=== PATIENT | female | born 2000 | race Caucasian/White ===

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

== ENCOUNTER 2024-02-12 18:39 | Emergency (ER) | payer BC, MEDICAID ==
[~2024-02-12] VITALS: Ht 154.9 cm; Wt 36.3 kg
[2024-02-12 18:42] VITALS: TEMP 100.3
[2024-02-12 19:23] LABS: BASOPHILS % (AUTO) 0.1 % (0.0-2.0); HEMATOCRIT 42 % (33-45); LYMPHOCYTES # (AUTO) 0.6 K/uL (0.8-4.8); LYMPHOCYTES % (AUTO) 6.1 % (20.0-44.0); MEAN CORPUSCULAR HEMOGLOBIN 30 PG (26.0-33.0); MEAN CORPUSCULAR HGB CONC 33 g/dl (31.0-36.0); MEAN CORPUSCULAR VOLUME 91 fL (82-100); MONOCYTES # (AUTO) 0.5 K/uL (0.1-1.30); MONOCYTES % (AUTO) 5.1 % (2.0-12.0); NEUTROPHILS # (AUTO) 8.6 K/uL (1.8-8.9); NEUTROPHILS % (AUTO) 88.7 % (43.0-81.0); PLATELET COUNT (AUTO) 189 K/uL (150-450); RED CELL DISTRIBUTION WIDTH 14.3 % (11.5-15.0); WHITE BLOOD COUNT (AUTO) 9.7 K/uL (4.3-11.0)
[2024-02-12 19:28] LABS: PREGNANCY TEST URINE QUAL NEGATIVE (NEGATIVE)
[2024-02-12 19:43] LABS: MAGNESIUM 1.9 mg/dL (1.8-2.4)
[2024-02-12 19:44] LABS: CALCIUM, SERUM 9.1 mg/dL (8.5-10.1); CARBON DIOXIDE 28 mmol/L (21-32); CHLORIDE 104 mmol/L (98-107); CREATININE 0.6 mg/dL (0.6-1.3); GLUCOSE 103 mg/dL (74-106); POTASSIUM 3.4 mmol/L (3.5-5.1); SODIUM SERUM 142 mmol/L (136-145); UREA NITROGEN, BLOOD 15 mg/dL (7-18)
[2024-02-12 19:44] LABS: AMPHETAMINE, URINE NEGATIVE (NEGATIVE); BARBITURATE, URINE NEGATIVE (NEGATIVE); BENZODIAZEPINE, URINE NEGATIVE (NEGATIVE); CANNABINOID, URINE NEGATIVE (NEGATIVE); COCCAINE, URINE NEGATIVE (NEGATIVE); OPIATE, URINE NEGATIVE (NEGATIVE); PHENCYCLIDINE SCREEN,URINE NEGATIVE (NEGATIVE)
[2024-02-12 19:57] LABS: THYROID STIMULATING HORMONE 0.7 uIU/mL (0.358-3.74)
[2024-02-12 19:59] LABS: NT-PRO BNP 59 pg/mL (0-125)
[2024-02-12] MEDS: IV NS 0.9% 1,000 ML BAG IV ONE (21:05)
[2024-02-12] MEDS ORDERED: CT SWABBABLE VALVE TRANS SET 1 EA INFUS.SET MC ONE (22:34)
[2024-02-12] MEDS ORDERED: IOHEXOL-350 100 ML VIAL IV ONE (22:34)
[2024-02-12] MEDS ORDERED: IV NS 0.9% 250 ML IV ONE (22:34)
[2024-02-12] MEDS ORDERED: POTASSIUM CHLORIDE 10 MEQ TABLET.SA ONE (23:01)
[2024-02-12] MEDS: POTASSIUM CHLORIDE 10 MEQ TABLET.SA PO ONE (23:05)
[2024-02-13 00:22] VITALS: BP 105/58; O2SAT 98
== END 2024-02-13 00:23 | disposition home or self-care (01) ==
LOC: ER 18:42
DX: R00.2 Palpitations (principal); R00.0 Tachycardia, unspecified; R07.9 Chest pain, unspecified; R79.89 Other specified abnormal findings of blood chemistry; Z87.11 Personal history of peptic ulcer disease; Z87.19 Personal history of other diseases of the digestive system; Z88.0 Allergy status to penicillin; Z86.79 Personal history of other diseases of the circulatory system; Z91.011 Allergy to milk products
CPT/HCPCS: 99285; 96360; 71275; 71045; 93005; 85025; 80048; 83735; 85378; 84703; 36415; 84439; 84443; 84484; 83880; 80307; J7030; J7050; Q9967